=== PATIENT | female | born 1980 | race Caucasian/White ===

== ENCOUNTER 2021-02-17 18:00 | Emergency (ER) | payer MEDICAID, OTHER ==
[~2021-02-17] VITALS: Ht 167.6 cm; Wt 90.7 kg
[2021-02-17 18:00] VITALS: BP 116/83
--- NOTE | 2021-02-17 18:00 | NUR ---
SHANE HAILE ALS AND PLACED IN BED 12.
--- NOTE | 2021-02-17 18:25 | NUR ---
40YO FEMALE BIBA C/O RIGHT SIDED ABDOMINAL AND BACK PAIN. GIVEN 200 MCG OF FENTANYL IM BY MEDICS THAT PROVIDED NO RELIEF. PT STATES SHE HAS A HISTORY OF KIDNEY STONES. PAIN 10/10 DESCRIBES SHARP PAIN. PT IS DIAPHORETIC, CRYING, AND SHAKING, GAURDED TO PAIN AREA. A&OX4, VSS, DENIES CHEST PAIN. SOB. N/V/D. SENSATION AND ROM INTACT. BS ACTIVE X4QUAD. TENDERNESS TO RIGHT SIDE. SKIN INTACT, NO BRUISING/DISCOLORATION TO ABD AREA. RR EVEN AND UNLABORED. BED IN LOWEST POSITION/SIDE RAILS UP FOR SAFETY. ALLERGY: PCN PMH: NONE
[2021-02-17] MEDS ORDERED: MORPHINE SULFATE 4 MG/ML SYR ONE (18:47)
--- NOTE | 2021-02-17 18:47 | NUR ---
DR MART AT BEDSIDE EVALUATING PT
[2021-02-17] MEDS ORDERED: MORPHINE SULFATE 4 MG/ML SYR IM ONE (18:50)
--- NOTE | 2021-02-17 18:57 | NUR ---
UNABLE TO OBTAIN IV ACCESS. AT BEDSIDE FOR ULTRASOUND IV
[2021-02-17] MEDS ORDERED: NACL 0.9% 1,000 ML IV ONE (19:00)
[2021-02-17] MEDS ORDERED: MORPHINE SULFATE 4 MG/ML SYR IVP ONE ×2 (19:10→21:20)
--- NOTE | 2021-02-17 19:14 | NUR ---
Rceived report from IRENA Hinojosa for continuity of care
--- NOTE | 2021-02-17 19:19 | NUR ---
MASSAGE COORDINATOR AT BEDSIDE COLLECTING LABS
--- NOTE | 2021-02-17 19:20 | NUR ---
REPORT GIVEN TO SAILAJA RN, TRANSFER OF CARE AT THIS TIME
[2021-02-17 19:40] LABS: BASOPHILS # (AUTO) 0.1 K/uL (0.00-0.22); BASOPHILS % (AUTO) 0.6 % (0.0-2.0); EOSINOPHILS # (AUTO) 0.1 K/uL (0-0.4); EOSINOPHILS % (AUTO) 1.3 % (0.0-4.0); HEMATOCRIT 45.3 % (36-48); HEMOGLOBIN 15.3 g/dL (12.0-16.0); LYMPHOCYTES # (AUTO) 2.3 K/uL (2.5-16.5); LYMPHOCYTES % (AUTO) 25.3 % (20.5-51.1); MEAN CORPUSCULAR HEMOGLOBIN 28 pg (27-31); MEAN CORPUSCULAR HGB CONC 34 g/dL (33-37); MEAN CORPUSCULAR VOLUME 83.5 fL (80-94); MONOCYTES # (AUTO) 0.6 K/uL (0.8-1.0); MONOCYTES % (AUTO) 6.2 % (1.7-9.3); NEUTROPHILS % (AUTO) 66.6 % (42.2-75.2); PLATELET COUNT (AUTO) 295 K/uL (140-450); RED BLOOD CELL COUNT(AUTO) 5.42 MIL/uL (4.20-5.40); RED CELL DISTRIBUTION WIDTH 14.6 % (11.6-13.7); WHITE BLOOD COUNT (AUTO) 9.1 K/uL (4.8-10.8)
--- NOTE | 2021-02-17 19:53 | NUR ---
PATIENT AMBULATED TO THE BATHROOM FOR URINE COLLECTION
[2021-02-17 20:03] LABS: ALBUMIN 3.9 g/dL (3.4-5.0); ANION GAP 15.7 (8-16); CARBON DIOXIDE 23.2 mmol/L (21-32); CREATININE 0.9 mg/dL (0.6-1.3); POTASSIUM 3.9 mmol/L (3.5-5.1); TOTAL BILIRUBIN 0.6 mg/dL (0.0-1.0)
--- NOTE | 2021-02-17 20:49 | NUR ---
patient taken to CT
[2021-02-17 21:03] LABS: BILIRUBIN,URINE NEGATIVE (NEGATIVE); BLOOD, URINE NEGATIVE (NEGATIVE); COLOR,URINE YELLOW (YELLOW); LEUKOCYTE ESTERASE ,URINE 1+ (NEGATIVE); NITRITE, URINE NEGATIVE (NEGATIVE); UGLUCOSE NEGATIVE (NEGATIVE)
[2021-02-17 21:04] LABS: APPEARANCE,URINE HAZY (CLEAR)
[2021-02-17 21:14] LABS: RBC,URINE NONE SEEN /HPF (0-5)
--- NOTE | 2021-02-17 21:20 | NUR ---
patient c/o pain 04/24-- patient starting to become diaphoretic, shooting pain RLQ radiating to back. AAOx4. VSS. DONALDOD made aware
--- NOTE | 2021-02-17 22:35 | NUR ---
ERMD at bedside for re-examination of patient
[2021-02-17] MEDS ORDERED: IBUP-2213 PO (22:57)
[2021-02-17] MEDS ORDERED: SULF-58 PO (22:57)
[2021-02-17 23:23] VITALS: BP 113/64
--- NOTE | 2021-02-17 23:23 | NUR ---
Patient discharged with v/s stable. Written and verbal after care instructions given and explained. Patient alert, oriented and verbalized understanding of instructions. Ambulatory with steady gait. All questions addressed prior to discharge. ID band removed. Patient advised to follow up with PMD. Rx of Bactrim 400-80mg and ibuprofen given. Patient educated on indication of medication including possible reaction and side effects. Opportunity to ask questions provided and answered.
--- NOTE | 2021-02-23 20:00 | NUR ---
LATE ENTRY- 0.9% NS BOLUS DISCONTINUED AT 2020
== END 2021-02-17 23:33 | disposition home or self-care (01) ==
LOC: MED 18:00
DX: N39.0 Urinary tract infection, site not specified (principal); E11.9 Type 2 diabetes mellitus without complications; Z88.0 Allergy status to penicillin; Z79.899 Other long term (current) drug therapy
CPT/HCPCS: 36415; 74176; 80053; 81001; 81025; 83690; 84484; 85025; 87086; 93005; 96361; 96374; 96376; 99285; J2270; J7030

== ENCOUNTER 2021-03-14 23:45 | Emergency (ER) | payer OTHER ==
[~2021-03-14] VITALS: Ht 162.6 cm; Wt 122.5 kg
[2021-03-14 23:45] VITALS: BP 104/71
[~2021-03-14 23:45] MED LIST: IBUP-2213 PO; SULF-58 PO
--- NOTE | 2021-03-14 23:45 | NUR ---
BIBJairo FROM HOME, PT. IS A 40 Y/O FEMALE WITH C/O RIGHT SIDED ABDOMINAL PAIN X1 DAY, WORSENING WITHIN LAST HOUR. PER EMS, PT. STATED THAT PAIN IS SIMILAR TO PAST KIDNEY STONES. UPON ASSESSMENT, PT. IS SWEATING EXCESS AND WRITHING IN PAIN. MED HX: DENIES ALLERGIES: PENICILLINS
--- NOTE | 2021-03-14 23:45 | NUR ---
MIC HERNANDEZ TAKEN TO BED #2
--- NOTE | 2021-03-15 00:14 | NUR ---
ERMD AT BEDSIDE EVALUATING PT.
[2021-03-15] MEDS ORDERED: ONDANSETRON 4 MG/2 ML VIAL IVP ONE (00:20)
[2021-03-15] MEDS ORDERED: MORPHINE SULFATE 4 MG/ML SYR IVP ONE (00:20)
[2021-03-15] MEDS ORDERED: KETOROLAC 60 MG/2 ML VIAL IM ONE (00:20)
[2021-03-15] MEDS ORDERED: NACL 0.9% 1,000 ML IV ONE ×2 (00:20→02:20)
--- NOTE | 2021-03-15 00:41 | NUR ---
HILLARY MERCHANT AT BEDSIDE FOR ULTRASOUND IV PLACEMENT.
[2021-03-15 00:57] LABS: BASOPHILS # (AUTO) 0.1 K/uL (0.00-0.22); BASOPHILS % (AUTO) 0.9 % (0.0-2.0); EOSINOPHILS # (AUTO) 0.2 K/uL (0-0.4); EOSINOPHILS % (AUTO) 1.6 % (0.0-4.0); HEMATOCRIT 46.3 % (36-48); HEMOGLOBIN 15.6 g/dL (12.0-16.0); LYMPHOCYTES # (AUTO) 3.6 K/uL (2.5-16.5); LYMPHOCYTES % (AUTO) 25.9 % (20.5-51.1); MEAN CORPUSCULAR HEMOGLOBIN 28 pg (27-31); MEAN CORPUSCULAR HGB CONC 34 g/dL (33-37); MONOCYTES % (AUTO) 7.5 % (1.7-9.3); NEUTROPHILS % (AUTO) 64.1 % (42.2-75.2); PLATELET COUNT (AUTO) 342 K/uL (140-450); RED BLOOD CELL COUNT(AUTO) 5.52 MIL/uL (4.20-5.40); RED CELL DISTRIBUTION WIDTH 14.9 % (11.6-13.7)
--- NOTE | 2021-03-15 01:06 | NUR ---
PT. TAKEN TO CT. VIA CRISTINA
--- NOTE | 2021-03-15 01:10 | NUR ---
PT. STATES RELIEF FROM PAIN FROM MORPHINE MEDICATION.
[2021-03-15 01:15] LABS: ALBUMIN 4.1 g/dL (3.4-5.0); ANION GAP 15.7 (8-16); CARBON DIOXIDE 27.9 mmol/L (21-32); CREATININE 1.2 mg/dL (0.6-1.3); POTASSIUM 3.6 mmol/L (3.5-5.1); TOTAL BILIRUBIN 0.4 mg/dL (0.0-1.0)
--- NOTE | 2021-03-15 01:20 | NUR ---
PT. BACK FROM CT. VIA CRISTINA
--- NOTE | 2021-03-15 01:30 | NUR ---
PT. ASKING FOR PAIN MEDICATION, STATING "PAIN IS COMING BACK." PT. SEEN GUARDING RIGHT SIDE ABDOMEN.
--- NOTE | 2021-03-15 01:35 | NUR ---
DELAY IN URINE COLLECTION DUE TO PT. STATING "NOT NOW" WHEN ASKED TO GIVE A URINE SAMPLE.
[2021-03-15] MEDS ORDERED: MORPHINE SULFATE 10 MG/ML VIAL IVP ONE (02:20)
[2021-03-15] MEDS ORDERED: cefTRIAXone 1,000 MG VIAL ONE (02:24)
--- NOTE | 2021-03-15 02:50 | NUR ---
PT. STATES RELIEF FROM PAIN. NO COMPLAINTS AT THIS TIME.
--- NOTE | 2021-03-15 03:06 | NUR ---
PT. ACCOMPANIED TO BATHROOM VIA W/C FOR URINE SAMPLE
--- NOTE | 2021-03-15 03:15 | NUR ---
ULTRASOUND AT BEDSIDE
[2021-03-15 03:28] LABS: APPEARANCE,URINE SL CLOUDY (CLEAR); BILIRUBIN,URINE NEGATIVE (NEGATIVE); BLOOD, URINE NEGATIVE (NEGATIVE); COLOR,URINE YELLOW (YELLOW); LEUKOCYTE ESTERASE ,URINE NEGATIVE (NEGATIVE); NITRITE, URINE NEGATIVE (NEGATIVE); UGLUCOSE NEGATIVE (NEGATIVE)
--- NOTE | 2021-03-15 03:53 | NUR ---
HILLARY MERCHANT AT BEDSIDE
[2021-03-15] MEDS ORDERED: ONDA-24 SL (04:05)
[2021-03-15 04:22] VITALS: BP 103/55
--- NOTE | 2021-03-15 04:22 | NUR ---
Patient discharged with v/s stable. Written and verbal after care instructions given and explained. Patient alert, oriented and verbalized understanding of instructions. Wheel Chair Assisted to lobby as pt. stated that her daughter had requested an UBER for her. All questions addressed prior to discharge. ID band removed. Patient advised to follow up with PMD. Rx of Zofran given. Patient educated on indication of medication including possible reaction and side effects. Opportunity to ask questions provided and answered.
== END 2021-03-15 04:22 | disposition home or self-care (01) ==
LOC: MED 23:45
DX: N83.292 Other ovarian cyst, left side (principal); G89.29 Other chronic pain; R10.9 Unspecified abdominal pain; E11.9 Type 2 diabetes mellitus without complications; F03.90 Unspecified dementia, unspecified severity, without behavioral disturbance, psychotic disturbance, mood disturbance, and anxiety
CPT/HCPCS: 36415; 74176; 76856; 80053; 81003; 81025; 82150; 83605; 83690; 84703; 85025; 87040; 93976; 96361; 96365; 96372; 96375; 96376; 99285; J0696; J1885; J2270; J2405; J7030; 36569

== ENCOUNTER 2021-04-26 20:03 | Emergency (ER) | payer OTHER ==
[~2021-04-26] VITALS: Ht 160 cm; Wt 121.1 kg
[~2021-04-26 20:03] MED LIST changes: +ONDA-24 SL
[2021-04-26 20:42] VITALS: BP 106/66
--- NOTE | 2021-04-26 21:00 | NUR ---
PT TRANSFERRED TO ER BED 21 VIA WC
--- NOTE | 2021-04-26 21:20 | NUR ---
40 Y/O F BIB DAUGHTER FROM HOME, C/O BACK AND NECK PAIN WITH SEVERE JOINT PAIN THAT STARTED FOR 2 DAYS. PT HAD PHYSICAL THERAPY AND MRI DONE TODAY. DX: BULGING DISC. PMH: PREDIABETES ALLERGY: PENICILLIN (HIVES) MED: TRAMADOL 2 PO (LAST DOSE 1999)
[2021-04-26] MEDS: LIDOCAINE 5% 1 EA PATCH TP SCH (23:01)
[2021-04-26] MEDS ORDERED: KETOROLAC 15 MG/ML VIAL ONE (23:21)
[2021-04-26] MEDS ORDERED: KETOROLAC 15 MG/ML VIAL IM ONE (23:25)
[2021-04-26] MEDS ORDERED: diazePAM 5 MG TAB PO ONE ×2 (23:35→23:40)
--- NOTE | 2021-04-26 23:38 | NUR ---
VERBAL ORDER VALIUM 5MG PO x1 RECEIVED FROM DR. ALEGRIA. ORDER CARRIED OUT.
[2021-04-26] MEDS ORDERED: diazePAM 5 MG TAB ONE (23:39)
--- NOTE | 2021-04-26 23:40 | NUR ---
PT VOMITTED S/P ADMINISTRATION OF VALIUM 5MG PO. DR. ALEGRIA NOTIFIED. ADDITIONAL ORDER FOR ZOFRAN 4MG ODT RECEIVED.
[2021-04-26] MEDS ORDERED: ONDANSETRON 4 MG ODT ONE (23:44)
[2021-04-26] MEDS ORDERED: ONDANSETRON 4 MG ODT PO ONE (23:45)
--- NOTE | 2021-04-27 | NUR ---
PULLED VALIUM 5MG PO D/T PT VOMITTING INITIAL DOSE. AFTER ADMINISTRATION PT VOMITTED MEDICATION AGAIN. DR. ALEGRIA MADE AWARE.
--- NOTE | 2021-04-27 00:15 | NUR ---
UNABLE TO START IV, HILLARY ALEGRIA MADE AWARE.
--- NOTE | 2021-04-27 00:33 | NUR ---
PT STATED SHE HAS BEEN WAITING 6HRS WITHOUT MEDICATION FOR PAIN. PT WAS OFFERED LIDOCAINE PATCH AND TORADOL, PT REFUSED BOTH. PT WAS GIVEN VALUIM AND PT VOMITTED X2. ERMD WILL START LINE SOON SHE GETS A CHANCE.
[2021-04-27] MEDS ORDERED: KETOROLAC 15 MG/ML VIAL ONE (00:38)
[2021-04-27] MEDS ORDERED: KETOROLAC 15 MG/ML VIAL IM ONE (00:40)
[2021-04-27] MEDS: LIDOCAINE 5% 1 EA PATCH TP SCH (00:47)
[2021-04-27] MEDS ORDERED: DIAZEPAM PFS 10 MG/2 ML SYR IVP ONE (00:55)
[2021-04-27] MEDS ORDERED: DIAZEPAM PFS 10 MG/2 ML SYR ONE (00:58)
[2021-04-27] MEDS ORDERED: MORPHINE SULFATE 4 MG/ML SYR IVP ONE (01:15)
--- NOTE | 2021-04-27 01:17 | NUR ---
Gary dawkins in EDM - 04/27/21 at 0119 by [facility] PT GIVEN URINE SPECIMEN CUP. STATED HE WILL TELL ME WHEN HES READY. MOTHER AT BEDSIDE.
--- NOTE | 2021-04-27 01:30 | NUR ---
PT GIVEN BENADRYL P.O. PT VOMITTED MEDICATION.
--- NOTE | 2021-04-27 01:34 | NUR ---
Note juancho in EDM - 04/27/21 at 0151 by [facility] PT GIVEN BENDRYL, PT VOMITTED MEDICATION. HILLARY MADE AWARE.
[2021-04-27] MEDS ORDERED: ONDANSETRON 4 MG/2 ML VIAL IVP ONE (01:40)
[2021-04-27 02:05] VITALS: BP 126/69
--- NOTE | 2021-04-27 02:05 | NUR ---
Patient discharged with v/s stable. Written and verbal after care instructions given and explained. Patient verbalized understanding. Ambulatory with W/C. All questions addressed prior to discharge. Advised to follow up with PMD.
== END 2021-04-27 02:05 | disposition home or self-care (01) ==
LOC: MED 20:03
DX: M54.9 Dorsalgia, unspecified (principal); M54.2 Cervicalgia; E11.9 Type 2 diabetes mellitus without complications; I10 Essential (primary) hypertension; Z88.0 Allergy status to penicillin
CPT/HCPCS: 96372; 96374; 96375; 99285; J1885; J2270; J2405; J3360; Q0162; Q0163

== ENCOUNTER 2021-12-04 20:02 | Emergency (ER) | payer OTHER ==
[~2021-12-04] VITALS: Ht 154.9 cm; Wt 131.6 kg
[~2021-12-04 20:02] MED LIST changes: +ONDA-188 SL; -ONDA-24 SL
--- NOTE | 2021-12-04 20:05 | NUR ---
pt to bed 03
[2021-12-04 20:10] VITALS: BP 111/71
--- NOTE | 2021-12-04 20:10 | NUR ---
41 YO/F BIBA FROM HOME W C/O EPIGASTRIC PAIN 10/10 SHARP RADIATING TO REST OF ABDOMEN, CONSTANT X7 HOURS S/P CONSUMING SEAFOOD, +N/V/D. PT DENIES CHEST PAIN, BLOOD IN EMESIS OR BOWEL, REPORTS SLIGHT SOB. PT TOOK IBUPROFEN AND TYLENOL AT 1500 W/O RELIEF. PT WAS GIVEN 4MG OF ZOFRAN HALL TENDER. PT CONNECTED TO MONITOR. WILL CONTINUE TO MONITOR. PMH: PRE-DIABETIC, LUPUS ALLERGIES: PENICILLIN
[2021-12-04] MEDS ORDERED: FAMOTIDINE 20 MG/2 ML VIAL IVP ONE (20:20)
[2021-12-04] MEDS ORDERED: METOCLOPRAMIDE 10 MG/2 ML INJ VIAL IVP ONE (20:20)
[2021-12-04] MEDS ORDERED: MORPHINE SULFATE 4 MG/ML SYR IVP ONE (20:20)
[2021-12-04] MEDS ORDERED: ONDANSETRON 4 MG/2 ML VIAL IVP ONE (20:20)
[2021-12-04 20:47] LABS: BASOPHILS # (AUTO) 0.1 K/uL (0.00-0.22); BASOPHILS % (AUTO) 0.8 % (0.0-2.0); EOSINOPHILS # (AUTO) 0.2 K/uL (0-0.4); HEMATOCRIT 42.7 % (36-48); HEMOGLOBIN 14.7 g/dL (12.0-16.0); LYMPHOCYTES # (AUTO) 2.9 K/uL (2.5-16.5); LYMPHOCYTES % (AUTO) 33.1 % (20.5-51.1); MEAN CORPUSCULAR HEMOGLOBIN 29 pg (27-31); MEAN CORPUSCULAR HGB CONC 34 g/dL (33-37); MEAN CORPUSCULAR VOLUME 84.5 fL (80-94); MONOCYTES # (AUTO) 0.8 K/uL (0.8-1.0); MONOCYTES % (AUTO) 8.7 % (1.7-9.3); NEUTROPHILS # (AUTO) 4.9 K/uL (1.8-7.7); NEUTROPHILS % (AUTO) 55.4 % (42.2-75.2); PLATELET COUNT (AUTO) 253 K/uL (140-450); RED BLOOD CELL COUNT(AUTO) 5.05 MIL/uL (4.20-5.40); WHITE BLOOD COUNT (AUTO) 8.8 K/uL (4.8-10.8)
--- NOTE | 2021-12-04 20:49 | NUR ---
PT HAS BEEN MEDICATED FOR PAIN, PT REPORTS PAIN HAS IMPROVED TO 5/10. PT UNABLE TO PROVIDE URINE AT THIS TIME, WILL ATEMPT SOON.
[2021-12-04 21:17] LABS: ALBUMIN 3.1 g/dL (3.4-5.0); ANION GAP 9.7 (8-16); CARBON DIOXIDE 23.3 mmol/L (21-32); CREATININE 0.7 mg/dL (0.6-1.3); TOTAL BILIRUBIN 0.4 mg/dL (0.0-1.0)
--- NOTE | 2021-12-04 21:31 | NUR ---
pt ambulatory to bathroom w steady gait.
--- NOTE | 2021-12-04 21:39 | NUR ---
upon return from bathroom pt began to vomit and abdominal pain increased. ermd made aware.
[2021-12-04] MEDS ORDERED: HALOPERIDOL IM 5 MG/ML VIAL IVP ONE ×2 (21:40)
[2021-12-04] MEDS ORDERED: DICYCLOMINE HCL LIQUID 20 MG, ALUMINUM HYD/MAG/SIMETHICONE 30 ML, LIDOCAINE VISCOUS 2% ... PO ONE ×3 (21:40)
--- NOTE | 2021-12-04 21:50 | NUR ---
urine walked over to lab
[2021-12-04 21:56] LABS: APPEARANCE,URINE CLEAR (CLEAR); BILIRUBIN,URINE 1+ (NEGATIVE); BLOOD, URINE 3+ (NEGATIVE); COLOR,URINE YELLOW (YELLOW); LEUKOCYTE ESTERASE ,URINE TRACE (NEGATIVE); NITRITE, URINE NEGATIVE (NEGATIVE); UGLUCOSE NEGATIVE (NEGATIVE)
--- NOTE | 2021-12-04 22:16 | NUR ---
pt reports pain improvement, slight nausea, no more vomiting. awaiting lab results review by mark.
[2021-12-04 22:21] LABS: RBC,URINE 0-5 /HPF (0-5)
[2021-12-04 22:22] LABS: WBC,URINE 0-5 /HPF (0-5)
--- NOTE | 2021-12-04 23:06 | NUR ---
pt reports her "pain is fine" and wants to go home now. ermd made aware.
[2021-12-04] MEDS ORDERED: FAMO-90 PO (23:09)
[2021-12-04 23:27] VITALS: BP 109/59
== END 2021-12-04 23:27 | disposition home or self-care (01) ==
LOC: MED 20:02
DX: R10.13 Epigastric pain (principal); R11.2 Nausea with vomiting, unspecified; R19.7 Diarrhea, unspecified; E11.9 Type 2 diabetes mellitus without complications; Z90.49 Acquired absence of other specified parts of digestive tract; Z98.890 Other specified postprocedural states; Z79.899 Other long term (current) drug therapy; Z88.0 Allergy status to penicillin
CPT/HCPCS: 36415; 80053; 81001; 83605; 83690; 85025; 87040; 96374; 96375; 99284; J1630; J2270; J2405; J2765; J3490